=== PATIENT | male | born 1965 | race Two or more races ===

== ENCOUNTER 2022-01-09 19:42 | Emergency (ER) | payer SELFPAY ==
[~2022-01-09] VITALS: Ht 170.2 cm; Wt 81.6 kg
--- NOTE | 2022-01-09 20:17 | NUR ---
BIBSELF C/O FALL FROM LADDER APROX 5 FT ABOVE GROUND AT HOME AROUND 6PM. PT AWAKE; AMS NONVERBAL AT THIS TIME, OPENS EYES. TOLERATING R/A WELL WITH NO RESP DISRESS. R EYELID SWELLING NOTES. CONNECTED PT TO POX AND MONITOR. SAFETY MEASURES IN PLACE.
--- NOTE | 2022-01-09 20:22 | NUR ---
RAC #18G S/L BLOOD COLLECTED AND SENT TO LAB
--- NOTE | 2022-01-09 20:23 | NUR ---
PT TAKEN TO CT VIA [facility]
[2022-01-09] MEDS ORDERED: ONDANSETRON HCL/PF 4 MG/2 ML VIAL IVP ONE (20:30)
--- NOTE | 2022-01-09 20:40 | NUR ---
IMAGES SENT TO DR. DAWKINS FOR CONSULT
[2022-01-09] MEDS ORDERED: NICARDIPINE IN DEXTROSE,ISO-OS 200 ML IV ONE (20:46)
[2022-01-09] MEDS ORDERED: ONDANSETRON HCL/PF 4 MG/2 ML VIAL ONE (20:48)
--- NOTE | 2022-01-09 20:50 | NUR ---
CALLED [facility] SPOKE TO LULA, FAXED CLINICALS AND FACESHEET
[2022-01-09] MEDS ORDERED: NICARDIPINE IN NACL, ISO-OSM 200 ML IV ONE (21:00)
--- NOTE | 2022-01-09 21:05 | NUR ---
CALLED [facility]. STEVE TUCKER, CHARGE NURSE AND WILL ASSIGN TO TRAUMA MD
--- NOTE | 2022-01-09 21:08 | NUR ---
COVID ANTIGEN SWAB AND URINE COLLECTED AND SENT TO LAB
--- NOTE | 2022-01-09 21:08 | NUR ---
CAITLIN, CALLED BACK PT IS ACCEPTED
--- NOTE | 2022-01-09 21:10 | NUR ---
DR SANTOS ON THE PHONE WITH [facility] M[facility]
[2022-01-09] MEDS ORDERED: LEVETIRACETAM (500MG) 500 MG/5 ML VIAL IV ONE (21:16)
[2022-01-09 21:17] LABS: BASOPHILS % (AUTO) 0.1 % (0.0-2.0); HEMATOCRIT 42 % (39-51); HEMOGLOBIN 13.9 g/dL (13.5-17.5); LYMPHOCYTES # (AUTO) 1.7 K/uL (0.8-4.8); LYMPHOCYTES % (AUTO) 6.1 % (20.0-44.0); MEAN CORPUSCULAR HGB CONC 33 g/dl (31.0-36.0); MEAN CORPUSCULAR VOLUME 92 fL (80-96); MONOCYTES # (AUTO) 1.9 K/uL (0.1-1.30); MONOCYTES % (AUTO) 6.9 % (2.0-12.0); NEUTROPHILS # (AUTO) 23.9 K/uL (1.8-8.9); NEUTROPHILS % (AUTO) 86.9 % (43.0-81.0); PLATELET COUNT (AUTO) 239 K/uL (150-450); RED BLOOD CELL COUNT(AUTO) 4.56 MIL/uL (4.5-6.0); WHITE BLOOD COUNT (AUTO) 27.5 K/uL (4.3-11.0)
[2022-01-09 21:20] VITALS: BP 161/92
--- NOTE | 2022-01-09 21:23 | NUR ---
REPORT GIVEN TO ALEX MARTINEZ FROM [facility]
--- NOTE | 2022-01-09 21:29 | NUR ---
PT LEFT VIA 911 BY [id number] TRANSPORTED TO [facility]. PT IS ACCOMPANIED BY DEL COLLINS AT BEDSIDE DURING TRANSPORT.
[2022-01-09] MEDS ORDERED: LEVETIRACETAM (500MG) 1,000 MG in IV NS 0.9% 100 ML IV SCH (21:30)
--- NOTE | 2022-01-09 21:35 | NUR ---
[facility] ADMINISTERED VIA IV; STILL INFUSING UPON TRANSFER TO [facility] WITH RN SUPERVISION
[2022-01-09 21:49] LABS: ALANINE AMINOTRANSFERASE 42 U/L (12-78); ALBUMIN 4.4 g/dL (3.4-5.0); ALCOHOL, BLOOD < 3 mg/dL (0-0); ALKALINE PHOSPHATASE 97 U/L (46-116); ASPARTATE AMINOTRANSFERASE 43 U/L (15-37); BILIRUBIN,DIRECT 0.2 mg/dL (0.0-0.2); BILIRUBIN,TOTAL 0.7 mg/dL (0.2-1.0); CALCIUM, SERUM 8.6 mg/dL (8.5-10.1); CARBON DIOXIDE 23 mmol/L (21-32); CHLORIDE 105 mmol/L (98-107); CREATININE 1.1 mg/dL (0.6-1.3); GLUCOSE 239 mg/dL (74-106); POTASSIUM 3.1 mmol/L (3.5-5.1); SODIUM SERUM 140 mmol/L (136-145); TOTAL PROTEIN, SERUM 8.5 g/dL (6.4-8.2); UREA NITROGEN, BLOOD 19 mg/dL (7-18)
== END 2022-01-09 21:29 | disposition short-term general hospital (02) ==
LOC: ER 19:45
DX: S06.5XAA Traumatic subdural hemorrhage with loss of consciousness status unknown, initial encounter (principal); S02.11HA Other fracture of occiput, left side, initial encounter for closed fracture; R40.2242 Coma scale, best verbal response, confused conversation, at arrival to emergency department; R40.2362 Coma scale, best motor response, obeys commands, at arrival to emergency department; R40.2142 Coma scale, eyes open, spontaneous, at arrival to emergency department; W11.XXXA Fall on and from ladder, initial encounter; Y92.019 Unspecified place in single-family (private) house as the place of occurrence of the external cause; S09.92XA Unspecified injury of nose, initial encounter; M47.892 Other spondylosis, cervical region; R41.82 Altered mental status, unspecified; Z20.822 Contact with and (suspected) exposure to COVID-19
CPT/HCPCS: 99291; 96374; 96375; 72125; 71250; 70450; 70486; 74176; 85025; 80048; 80076; 36415; 85730; 86850; 87426; 80320; 80307; J2405; J7030; J1953; C9803; G0480